=== PATIENT | female | born 1945 | race Asian ===

== ENCOUNTER 2016-05-15 10:33 | Outpatient (CLI) | payer OTHER, MEDICARE | END 2016-05-15 19:57 | disposition home or self-care (01) | LOC: SRD 10:33 | DX: M47.896 Other spondylosis, lumbar region (principal); M25.561 Pain in right knee; M25.461 Effusion, right knee; M76.9 Unspecified enthesopathy, lower limb, excluding foot | CPT/HCPCS: 72110; 73564 ==

== ENCOUNTER 2022-11-14 07:34 | Emergency (ER) | payer OTHER, MEDICARE ==
[~2022-11-14] VITALS: Ht 157.5 cm; Wt 58.1 kg
[2022-11-14 07:45] VITALS: BP_SYST 140; PULSE 91; RESP 16; TEMP 97.3; O2SAT 99
--- NOTE | 2022-11-14 07:49 | NUR ---
Patient triaged and placed in waiting room. C/O flu-like S/S. COVID + at home. VSS and patient appears in no acute distress at this time. Accompanied by , awaiting available bed, and MD notified of need for MSE.
[2022-11-14] MEDS ORDERED: NIRM1TAB5 PO (08:02)
--- NOTE | 2022-11-14 08:09 | NUR ---
Patient given written and verbal discharge instructions and verbalizes understanding. ER MD discussed with patient the results and treatment provided. Patient in stable condition. ID arm band removed. Rx given. Patient educated on pain management and to follow up with PMD. Pain Scale 0. Opportunity for questions provided and answered. Medication side effect fact sheet provided.
--- NOTE | 2022-11-14 08:09 | NUR ---
ER at bedside examining patient.
== END 2022-11-14 08:09 | disposition home or self-care (01) ==
LOC: SED 07:34
DX: U07.1 COVID-19 (principal); R50.9 Fever, unspecified; M79.10 Myalgia, unspecified site; R05.9 Cough, unspecified; E11.9 Type 2 diabetes mellitus without complications; Z79.899 Other long term (current) drug therapy
CPT/HCPCS: 36415; 99283